=== PATIENT | male | born 1985 ===

== ENCOUNTER 2016-12-25 07:32 | Observation (INO) | payer OTHER ==
[2016-12-25] MEDS ORDERED: LIDOCAINE 1% 2 ML INJ ID PRN (07:39)
[2016-12-25] MEDS ORDERED: LR 1,000 ML IV ONE (07:39)
[2016-12-25] MEDS ORDERED: BACITRACIN ZINC 14.2 GM OINTTUBE TP ONE (08:20)
[2016-12-25] MEDS ORDERED: MIDAZOLAM 2 MG/2 ML VIAL IVP ONE (08:20)
[2016-12-25] MEDS ORDERED: LIDOCAINE 1% 300 MG/30 ML SDV ONE (08:20)
--- NOTE | 2016-12-25 08:21 | PDANEPAE ---
ANE History of Present Illness here for parotid tumor excision ANE Past Medical History - Cardiovascular History Hx Hypertension: No Hx Arrhythmias: No Hx Chest Pain: No Hx Coronary Artery / Peripheral Vascular Disease: No Hx CHF / Valvular Disease: No Hx Palpitations: No - Pulmonary History Hx COPD: No Hx Asthma/Reactive Airway Disease: No Hx Recent Upper Respiratory Infection: No Hx Oxygen in Use at Home: No Hx Sleep Apnea: No Sleep Apnea Screening Result - Last Documented: Negative - Neurologic History Hx Cerebrovascular Accident: No Hx Seizures: No - Endocrine History Hx Diabetes: No - Renal History Hx Renal Disorders: No - Liver History Hx Hepatic Disorders: No - Neurological & Psychiatric Hx Hx Neurological and Psychiatric Disorders: No - Cancer History Hx Cancer: No - Congenital Disorder History Hx Congenital Disorders: No - GI History Hx Gastrointestinal Disorders: No - Other Health History Other Health History: NEG - Chronic Pain History Chronic Pain: No - Surgical History Prior Surgeries: COLLARBONE FX & REPAIR ANE Review of Systems Review of Systems: - Exercise capacity METS (RN): 5 METS ANE Patient History - Allergies Allergies/Adverse Reactions: No Known Allergies Allergy (Unverified 11/25/16 10:18) - Home Medications Home Medications: NK [No Known Home Meds] 11/25/16 [Last Taken Unknown] - NPO status NPO Since - Liquids (Date): 12/24/16 NPO Since - Liquids (Time): 20:00 NPO Since - Solids (Date): 12/24/16 NPO Since - Solids (Time): 20:00 - Smoking Hx Smoking Status: Never smoked - Family Anes Hx Family Hx Anesthesia Complications: NEG ANE Labs/Vital Signs - Vital Signs Blood Pressure: 140/79 Heart Rate: 79 Respiratory Rate: 16 O2 Sat (%): 97 Height: 185.42 cm Weight: 83.915 kg
--- NOTE | 2016-12-25 08:51 | PDHPUP ---
History & Physical Update H&P update statement: This history and physical update is based on an assessment of the patient which was completed after admission or registration (within 24 hours), but prior to the surgery/procedure.
[2016-12-25] MEDS ORDERED: fentaNYL 100 MCG/2 ML INJ ONE ×3 (08:54→11:58)
[2016-12-25] MEDS ORDERED: PROPOFOL/EMULSION 500 MG/50 ML BOTTLE IV ONE (08:56)
[2016-12-25] MEDS ORDERED: REMIFENTANIL HCL 1 MG VIAL ONE (08:59)
[2016-12-25] MEDS ORDERED: LIDO/EPI 2%** Not for Epidural 20 ML MDV ONE (09:08)
[2016-12-25] MEDS ORDERED: DEXAMETHASONE 4 MG/ML VIAL ONE ×2 (09:15)
[2016-12-25] MEDS ORDERED: PROPOFOL 200 MG/20 ML VIAL ONE ×2 (09:17→11:16)
[2016-12-25] MEDS ORDERED: ONDANSETRON 4 MG/2 ML VIAL IVP PRN ×2 (09:30→12:29)
[2016-12-25] MEDS ORDERED: LR 500 ML IV PRN (09:30)
[2016-12-25] MEDS ORDERED: ALBUTEROL 3 ML DEYVIAL IH PRN (09:30)
[2016-12-25] MEDS ORDERED: fentaNYL 100 MCG/2 ML INJ IVP PRN (09:30)
[2016-12-25] MEDS ORDERED: HYDROmorphONE/DILAUDID 1 MG/ML INJ IVP PRN (09:30)
[2016-12-25] MEDS ORDERED: NALOXONE HCL 0.4 MG/ML INJ IVP PRN (09:30)
[2016-12-25] MEDS ORDERED: DEXAMETHASONE 4 MG/ML VIAL IVP PRN (09:30)
[2016-12-25] MEDS ORDERED: SUGAMMADEX SODIUM 200 MG/2 ML VIAL IVP ONE (10:12)
--- NOTE | 2016-12-25 12:29 | POSTOPPROG ---
Post Op Note Date of Operation: 12/25/16 Surgeon: Teo Prabhakar Supervisor Pairing And Inspecting: Fani Jones Anesthesiologist: Tashi Chambers Pre-op Diagnosis: Left parotid tumor Post-op Diagnosis: same Indication: Left parotid tumor Procedure: parotidectomy with facial nerve dissection, FN monitoringx 2 hr Findings: 1.5x1.5 cm tumor in tail of parotid Inf/Abcess present in the surg proc area at time of surgery?: No Depth: Deep Incisional (Fascial) EBL: 50-100 Complications: none Drains: Hemovac (10 fr round suction) Specimen(s): left parotid tumor
[2016-12-25] MEDS ORDERED: D5W LR 1,000 ML IV SCH (12:30)
--- NOTE | 2016-12-25 12:30 | POSTANESTH ---
Post Anesthetic Evaluation Cardiovascular Status: Normal, Stable Respiratory Status: Normal, Stable Level of Consciousness/Mental Status: Can Participate in Eval Pain Control: Adequate, Prn Tx Ordered Nausea/Vomiting Control: Adequate, Prn Tx Ordered Complications Possibly Related to Anesthesia: None Noted
--- NOTE | 2016-12-25 13:37 | GOP ---
[f rep st] OPERATIVE REPORT DATE OF OPERATION: 12/25/2016 SURGEON: Teo Prabhakar MD LIFTER DRIVER: Isrrael Jones. ANESTHESIA: General. PREOPERATIVE DIAGNOSIS: Left parotid tumor. POSTOPERATIVE DIAGNOSIS: Left parotid tumor. PROCEDURE PERFORMED: 1. Left superficial parotidectomy with facial nerve dissection. 2. Facial nerve monitoring x2 hours. FINDINGS: A 1 x 1 cm tumor in the tail of the left parotid gland. The facial nerve was dissected ou t. All branches stimulated successfully at the end of the operation. SPECIMENS: Left parotid tumor. ESTIMATED BLOOD LOSS: Less than 50 mL. INDICATIONS: The patient is a 31-year-old man with a left parotid tumor. 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 He presents for surgical resection. DESCRIPTION OF PROCEDURE: Patient was taken to the OR and positively identified, placed on monitors, and general endotracheal anesthesia was induced. The table was then turned. A shoulder roll was pl aced. I then set up the facial nerve monitor with 2 leads. It was calibrated and used for approxima tely 2 hours of the operation to help decrease the potential risk of facial nerve injury. The patien t was then prepped and draped in normal sterile fashion. A modified Antonio incision was marked out an d infiltrated with 3 cc of 2% lidocaine with 1:100,000 of epinephrine. The skin was then sharply inc ised. Dissection was carried down to the parotid fascia. A sub-SMAS flap was then raised and secure d with stay sutures. At this point, a broad-based dissection was performed, dissecting in front of t he tragus along the perichondrium of the auricle and inferiorly along the anterior border of the ster nocleidomastoid muscle, deepening the plane of dissection, and eventually we were able to identify th e main branch of the facial nerve. Dissection was then carried out along the facial nerve to the pes . At this point, I turned my attention to the inferior branches of the nerve, leaving the upper bran ches undisturbed. Meticulous dissection was carried out from here, going along the different branche s of the facial nerve, the buccal, marginal mandibular, and cervical branches. Several larger vessel s were clamped, cut, and ligated with 3-0 Vicryl. The tumor was isolated behind the angle of the man dible and excised with a cuff of surrounding parotid tissue. The cervical branch of the facial nerve was directly adjacent to the tumor itself, requiring us to dissect directly along the capsule of the tumor. The capsule was not violated. At this point, the tumor was delivered and sent for pathologi c evaluation. The wound was irrigated with sterile saline solution. Hemostasis was assured. A 10-F rench drain was placed through a separate stab incision and secured with a drain stitch. The wound w as then closed with interrupted 4-0 Monocryl suture and a combination of 4-0 and 5-0 Prolene and 5-0 plain gut suture in the preauricular region. A pressure dressing was placed. The case was terminate d. The Ancef was discontinued. The patient was taken to postop care in good condition, having sherrill ated the procedure well. COMPLICATIONS: None. Copy requested to: Dasia Tate /[id number]/MODL
[2016-12-25] MEDS ORDERED: ceFAZolin 2 GM/DEXTROSE 100 ML IV SCH (14:00)
[2016-12-25] MEDS: ceFAZolin 2 GM in D5W 100 ML IV SCH ×2 (17:27→22:10)
--- NOTE | 2016-12-25 17:35 | SOAPPROG ---
SOAP Progress Note Assessment/Plan: Assessment: 31 year old male s/p left parotidectomy for parotid mass. Doing well, no complaints. Afebrile, vital signs stable. Good facial movement. Will plan to remove drain, redress, and discharge tomorrow. 12/25/16 17:32 12/25/16 17:35 Objective: Vital Signs Temp Pulse Resp BP Pulse Ox 36.5 C 87 16 137/86 H 95 12/25/16 13:14 12/25/16 16:28 12/25/16 16:28 12/25/16 16:28 12/25/16 16:28 12/24/16 12/25/16 12/26/16 05:59 05:59 05:59 Intake Total 740 Balance 740 ICD10 Worksheet Patient Problems: Problems Problem Status Onset Parotid mass Acute - ICD10 Problem Qualifiers (1) Parotid mass
[2016-12-25] MEDS ORDERED: IBUPROFEN 600 MG TAB PO PRN (18:00)
[2016-12-25] MEDS ORDERED: OXYCODONE/APAP 5/325 TAB PO PRN (18:00)
[2016-12-25 23:36] VITALS: RESP 16
[2016-12-26 03:23] VITALS: O2SAT 96
[2016-12-26] MEDS: ceFAZolin 2 GM in D5W 100 ML IV SCH (05:21)
[2016-12-26 07:41] VITALS: BP 115/56; PULSE 78; TEMP 98.1
--- NOTE | 2016-12-26 08:45 | PDDCSUM ---
Discharge Summary Discharge Summary: Mika Cabral is a 31 year old male admitted 12/25/16 for left parotidectomy for parotid pleomorphic adenoma. He was admitted for observation until 12/26/16. He is doing well, minimal discomfort and reports he slept well. He has no concerns. Objective: Patient was evaluated in bed, awake and alert. He is afebrile, vital signs stable. Daniel-Maier drain in place, 55mL total collected over last 24 hours. Drain and dressing were removed without any issues. Incision was found to be clean, dry, intact. Dressing was replaced. CN VII intact, good facial movement. Assessment/Plan: Patient was discharged home in stable condition. He will remove dressing tomorrow. Reviewed post-op care. Follow up in clinic in 1 week for suture removal. He will call with any questions.
--- NOTE | 2016-12-26 10:10 | ASDISCHSUM ---
Discharge Information Plan Status: Medically Cleared to Leave: Discharge Date: CM D/C Disposition: ADT D/C Disposition:Home, Routine, Self-Care Projected Discharge Date: Transportation at D/C: Discharge Delay Reason: Follow-Up Date: Discharge Slot: Final Diagnosis: Placement Information Patient Contact Information Contact Name:KERRY Relationship:Mother Address: Work Phone: City: [facility] Phone: State/Identification International Code: Email: Financial Information Financial Class:HMO and PPO Plans Primary Plan Desc:[employer] Primary Plan Number:[id number] Secondary Plan Desc:[employer] Secondary Plan Number:[id number] Assessment Information [facility] CM Progress Note CM Note CM Note Notes: Pt admitted OBS for left parotidectomy. Pt will DC today with no needs. Date Signed: 12/26/2016 10:09 AM Electronically Signed By:Karolyn Lin LCSW Intervention Information
== END 2016-12-26 09:35 | disposition home or self-care (01) ==
LOC: FSGY 07:32 → F1N 12:29
PROVIDERS: ADMIT Otolaryngology; ATTEND Otolaryngology
PROC: 0CB90ZZ Excision of Left Parotid Gland, Open Approach (ICD-10-PCS; principal; 2016-12-25 09:00)
DX: C07 Malignant neoplasm of parotid gland (principal)
CPT/HCPCS: 42415; G0378; J0171; J0690; J1100; J2250; J2704; J3010